=== PATIENT | female | born 1955 | race Caucasian/White ===

== ENCOUNTER → 2018-07-24 | Day surgery (SDC) | payer OTHER ==
[2018-07-23 17:11] LABS: BASOPHILS % 0.6 % (0.0-1.0); EOSINOPHILS # (AUTO) 0.2 (0.0-0.4); HEMATOCRIT 35.3 % (34.2-44.1); LYMPHOCYTES # (AUTO) 1.9 (1.0-3.2); LYMPHOCYTES % 36.2 % (18.0-39.1); MEAN CORPUSCULAR HEMOGLOBIN 28.5 pg (28-32); MEAN CORPUSCULAR HGB CONC 31.2 g/dL (31-35); MEAN CORPUSCULAR VOLUME 91.5 fL (81-99); MONOCYTES # (AUTO) 0.5 (0.2-0.8); MONOCYTES % 9.1 % (4.4-11.3); NEUTROPHILS # (AUTO) 2.7 (2.1-6.9); NEUTROPHILS % 50.7 % (38.7-80.0); PLATELET COUNT 185 x10e3/uL (140-360); RED BLOOD COUNT 3.86 x10e6/uL (3.6-5.1)
[2018-07-23 17:25] LABS: ALANINE AMINOTRANSFERASE 11 IU/L (0-55); ALBUMIN 3.9 g/dL (3.5-5.0); ALBUMIN/GLOBULIN RATIO 1.6 (0.8-2.0); ALKALINE PHOSPHATASE 83 IU/L (40-150); ANION GAP 13.2 mmol/L (8-16); BLOOD UREA NITROGEN 13 mg/dL (7-26); BUN/CREATININE RATIO 16 (6-25); CALCIUM 9.3 mg/dL (8.4-10.2); CARBON DIOXIDE 26 mmol/L (22-29); CHLORIDE 107 mmol/L (98-107); CREATININE, SERUM 0.81 mg/dL (0.57-1.11); EST GLOMERULAR FILTRATION RATE > 60 ML/MIN (60-); GLUCOSE 105 mg/dL (74-118); POTASSIUM 4.2 mmol/L (3.5-5.1); SODIUM 142 mmol/L (136-145)
[~2018-07-24] VITALS: Ht 158.8 cm; Wt 60.8 kg
[~2018-07-24] MED LIST: ALPRAZOLAM 0.5 MG TAB ONE; ATENOLOL50 MG PO; DIPHENHYDRAMINE HCL 25 MG CAP ONE; FENTANYL CITRATE/PF 100MCG/2 ML INJ ONE; HEPARIN SOD (PORCINE) 1000 UNIT/ML 30ML ONE; HEPARIN SOD/SOD CHLORIDE 2,000 ML ONE; IOPAMIDOL 370 MG/ML 200 ML INFUS..BTL INJ ONE; LEFLUNOMIDE20 MG PO; LIDOCAINE HCL 1% LOCAL INJ 20 ML VIAL ONE; LOSARTAN POTASS25 MG PO; MIDAZOLAM HCL 2 MG/2 ML VIAL ONE; NITROGLYCERIN/D5W 200 MCG/ML 250 ML ONE; NORVASC5 MG PO; PLAQUENIL200 MG PO; RESTASIS1 EACH OP; SODIUM CHLORIDE 0.9% 1000ML 1,000 ML ONE; SYNTHROID50 MCG PO; VERAPAMIL HCL 2.5 MG/ML 2 ML VIAL ONE; XANAX0.25 MG PO
--- NOTE | 2018-07-24 12:20 | NUR ---
Patient ambulated to ACU bay 8. Patient awake,alert, and orientedx4. Respirations even and unlabored on room air. Patient's at bedside. Patient does not appear to be in distress at this time. Preparing patient for LHC procedure.
[2018-07-24 12:30] VITALS: BP 164/74
--- NOTE | 2018-07-24 12:50 | NUR ---
Patient prepped and ready in usual fashion for Left heart catheterization procedure.
--- NOTE | 2018-07-24 14:30 | NUR ---
1430 Received handoff from Jose Hooks [facility] diagnostic Dr Bowman No significant findings. Identiferx2 . Rt Trband approach Iv infusing well left ac #20g site w/o s/s infiltration at 100cchr. at bedside explained POC and sign dc papers Aware of importance of followup care. Ordered diet tray. PEERLA able to respond appropriately. Abd soft and non tender denies necessity to defecate or urinate. Bilateral pedal pulses present. TR band titration scheduled in one hour. Denies CP or SOB Shabbir at bedside. . Plan for dc at 1500pm after tr band titration successful per Dr Bowman orders. Inital Tr band titration start at 1500pm(14cc in balloon) 1500pm-2cc site stable, no bleed no hematoma,radial pulse present 1515pm -2cc site stable, no bleeding no hematoma radial pulse present 1530pm -3cc site stable, no bleeding no hematoma radial pulse present 1545 tr band completion no bleeding no hematoma radial pulse present 2x2 gauze and coban with tegaderm rt wrist splint applied no complications noted, question and concerns answered copies of POC given to and all understands POC. genet/rn
--- NOTE | 2018-07-24 14:30 | NUR ---
Report provided to Carissa NICHOLSON, review of procedural findings and medications given. Patient drowsy, easily aroused. maintains airway and room air saturations of 96-98%. VS within baseline range. No gross issues of pressure, pain, pallor or dysrhythmia. IV site patent with NS 0.9% at 100ml/hr by dial-flow. patient hemodynamically stable with hemostasis. right radial TR band with 13ml to bladder. CDI w/o s/s of bleeding. patient transferred to [facility] max assist w/o incident. Overall skin integrity remains intact. transported to [facility] 10 - cgf procedure: Diagnostic LHC and coronary angiography Sheath puller: Mo RANDHAWA Medamy Given Intra-Procedure Sedatives Versed - 2 mg Fentanyl - 50 mcg Radial Cocktail Heparin - 3000 Units Verapamil - 2.5mg nitro - 200mcg Fluids Input - 100 ml Output - zero Contrast Isovue 370 - 40ml
[2018-07-24 14:45] VITALS: BP 111/82
[2018-07-24 15:00] VITALS: BP 116/82
[2018-07-24 15:15] VITALS: BP 105/82
[2018-07-24 15:30] VITALS: BP 114/58
[2018-07-24 15:45] VITALS: BP 120/82
--- NOTE | 2018-07-24 15:45 | NUR ---
1545pm TR band titration completed. Denies pain or sob Remove left ac iv site w/o s/s infiltration 2x2 Coban dressing applied. No bleeding or bruises,assisted to car with as tow driver per w/c by RN ,Pt is tolerating po intake and void qs. Family has made re-ck appt Dr Bowman and will f/o as requested understands POC and precautions. genet/kalyani
--- NOTE | 2018-07-25 01:30 | Operative Report ---
DATE OF PROCEDURE: 07/24/2018 SURGEON: Gilberto Bowman MD INDICATION: Coronary artery disease with normal stress test. PROCEDURES PERFORMED: 1. Left heart catheterization, selective coronary angiography, left ventriculography. 2. Deployment of right wrist TR band. COMPLICATIONS: None. BLOOD LOSS: 5 mL. RECOMMENDATIONS: Medical therapy. DESCRIPTION OF PROCEDURE: Access obtained in the right radial artery. A 5-Yoruba sheath was placed. Ultrasound was used for guidance. Coronary angiography demonstrated widely patent coronary arteries, nondominant right coronary artery, no coronary artery disease, no critical stenosis or occlusions noted. LV ejection fraction of 60%, LV end diastolic pressure of 8. No gradient across the aortic valve on pullback. Guide and sheath were removed. TR band applied. The patient discharged home same day. Gilberto Bowman MD KSB/MODL /[id number]
== END | disposition home or self-care (01) ==
LOC: CATH LAB 07-20 14:00
PROVIDERS: ATTEND Internal Medicine Interventional Cardiology
DX: I25.119 Atherosclerotic heart disease of native coronary artery with unspecified angina pectoris (principal); R93.49 Abnormal radiologic findings on diagnostic imaging of other urinary organs; Z01.812 Encounter for preprocedural laboratory examination; R03.0 Elevated blood-pressure reading, without diagnosis of hypertension; K21.9 Gastro-esophageal reflux disease without esophagitis; E07.9 Disorder of thyroid, unspecified; F41.9 Anxiety disorder, unspecified; Z88.1 Allergy status to other antibiotic agents; Z88.8 Allergy status to other drugs, medicaments and biological substances; Z79.02 Long term (current) use of antithrombotics/antiplatelets; Z86.2 Personal history of diseases of the blood and blood-forming organs and certain disorders involving the immune mechanism; Z82.49 Family history of ischemic heart disease and other diseases of the circulatory system
CPT/HCPCS: 36415; 80053; 85025; 93458; C1887; J1644; J2001; J2250; J7030; Q9967; C1769

== ENCOUNTER 2021-08-09 05:34 | Observation (INO) | payer BC, OTHER ==
[2021-08-07 14:03] LABS: BASOPHILS % 0.6 % (0.0-1.0); EOSINOPHILS # (AUTO) 0.1 (0.0-0.4); EOSINOPHILS % 2.9 % (0.0-6.0); HEMATOCRIT 38.6 % (34.2-44.1); HEMOGLOBIN 11.9 g/dL (12.0-16.0); LYMPHOCYTES % 20.5 % (18.0-39.1); MEAN CORPUSCULAR HEMOGLOBIN 30.2 pg (28-32); MEAN CORPUSCULAR HGB CONC 30.8 g/dL (31-35); MONOCYTES # (AUTO) 0.4 (0.2-0.8); MONOCYTES % 7.9 % (4.4-11.3); NEUTROPHILS # (AUTO) 3.3 (2.1-6.9); NEUTROPHILS % 67.9 % (38.7-80.0); PLATELET COUNT 148 x10e3/uL (140-360); RED BLOOD COUNT 3.94 x10e6/uL (3.6-5.1)
[2021-08-07 14:14] LABS: INR 0.96; PARTIAL THROMBOPLASTIN TIME 24.9 seconds (23.8-35.5); PROTHROMBIN TIME 13.7 seconds (11.9-14.5)
[2021-08-07 14:21] LABS: ANION GAP 13.4 mmol/L (8-16); CALCIUM 9.9 mg/dL (8.4-10.2); CREATININE, SERUM 1.03 mg/dL (0.57-1.11); POTASSIUM 4.4 mmol/L (3.5-5.1)
[~2021-08-09] VITALS: Ht 157.5 cm; Wt 58.7 kg
[~2021-08-09 05:34] MED LIST changes: +ALBUTEROL0.63 MG/3 NEB; -ALPRAZOLAM 0.5 MG TAB ONE; +BREO ELLIPTA 21 EACH INH; -DIPHENHYDRAMINE HCL 25 MG CAP ONE; -FENTANYL CITRATE/PF 100MCG/2 ML INJ ONE; -HEPARIN SOD (PORCINE) 1000 UNIT/ML 30ML ONE; -HEPARIN SOD/SOD CHLORIDE 2,000 ML ONE; -IOPAMIDOL 370 MG/ML 200 ML INFUS..BTL INJ ONE; -LIDOCAINE HCL 1% LOCAL INJ 20 ML VIAL ONE; -MIDAZOLAM HCL 2 MG/2 ML VIAL ONE; -NITROGLYCERIN/D5W 200 MCG/ML 250 ML ONE; +PANTOPRAZOLE SO40 MG PO; +SINGULAIR10 MG PO; -SODIUM CHLORIDE 0.9% 1000ML 1,000 ML ONE; +VALIUM5 MG PO; -VERAPAMIL HCL 2.5 MG/ML 2 ML VIAL ONE; +XARELTO20 MG PO
[2021-08-09] MEDS ORDERED: LIDOCAINE 1% W/EPINEPHRINE 20 ML VIAL ONE (06:56)
[2021-08-09] MEDS ORDERED: Vancomycin IV 1 GM VIAL ONE (06:56)
[2021-08-09] MEDS ORDERED: THROMBIN FOR SOLN 5,000 UNIT VIAL ONE (06:56)
[2021-08-09] MEDS ORDERED: ACETAMINOPHEN 325 MG TAB PO PRN (09:15)
[2021-08-09] MEDS ORDERED: ZOLPIDEM TARTRATE 5 MG TAB PO PRN (09:15)
[2021-08-09] MEDS ORDERED: Morphine 4mg Syringe 4 MG/ML INJ IM PRN (09:15)
[2021-08-09] MEDS ORDERED: PROMETHAZINE HCL (IM) 25 MG/ML VIAL IM PRN (09:15)
[2021-08-09] MEDS ORDERED: DIAZEPAM 5 MG TAB PO SCH (09:15)
[2021-08-09] MEDS ORDERED: MAGNESIUM/ALUMINUM/SIMETHICONE 30 ML UDC PO PRN (09:15)
[2021-08-09] MEDS ORDERED: HYDROMORPHONE 2MG/ML 2 MG/ML ML IV PRN (09:15)
[2021-08-09] MEDS ORDERED: ONDANSETRON HCL INJ 2MG/ML 2ML 2 MG/ML VIAL IV PRN (09:15)
[2021-08-09] MEDS ORDERED: ALBUTEROL SULF 0.083% NEB SOLN 3 ML NEB NEB PRN (09:15)
[2021-08-09] MEDS ORDERED: CARISOPRODOL 350 MG TAB PO PRN (09:15)
[2021-08-09] MEDS ORDERED: HYDROCODON-ACE1 EA12 PO (09:18)
[2021-08-09 10:27] VITALS: BP 134/57
[2021-08-09] MEDS: LACTATED RINGER'S 1,000 ML IV SCH ×3 (11:00→23:45)
[2021-08-09 11:56] VITALS: BP 121/56
[2021-08-09] MEDS ORDERED: LIDOCAINE HCL 2% LOCAL INJ 5 ML SDV VIAL INJ ONE (12:02)
[2021-08-09] MEDS ORDERED: POVIDONE IODINE 0.05% 0.05 % ML PO ONE (12:02)
[2021-08-09] MEDS ORDERED: PROPOFOL IV EMULSION 10 MG/ML 20 ML VIAL ONE (12:02)
[2021-08-09] MEDS ORDERED: EPHEDRINE SULFATE INJ 50 MG/ML VIAL ONE (12:02)
[2021-08-09] MEDS ORDERED: ROCURONIUM BROMIDE 10 MG/ML 5ML VIAL IV ONE (12:02)
[2021-08-09] MEDS ORDERED: DEXAMETHASONE SOD PHOS INJ 4 MG/ML SDV ONE (12:02)
[2021-08-09] MEDS ORDERED: ONDANSETRON HCL INJ 2MG/ML 2ML 2 MG/ML VIAL ONE (12:02)
[2021-08-09] MEDS ORDERED: ACETAMINOPHEN 1000 MG/100 ML IV ONE (12:02)
[2021-08-09] MEDS ORDERED: SEVOFLURANE INHAL SOLN 250 ML PEN BTL ONE (12:02)
[2021-08-09] MEDS ORDERED: MIDAZOLAM HCL 2 MG/2 ML VIAL ONE (12:22)
[2021-08-09] MEDS ORDERED: FENTANYL CITRATE/PF 100MCG/2 ML INJ ONE (12:22)
[2021-08-09 13:47] VITALS: BP 134/57
[2021-08-09] MEDS ORDERED: AMLODIPINE BESYLATE 5 MG TAB PO SCH (14:00)
[2021-08-09 16:22] VITALS: BP 114/55
[2021-08-09] MEDS ORDERED: SODIUM CHLORIDE 0.9% 50ML 50 ML ONE (16:33)
[2021-08-09] MEDS: NON-FORMULARY MEDICATION (Cyclosporine (Restasis) 1 DROP) OP SCH (17:00)
[2021-08-09] MEDS: LOSARTAN POTASSIUM 25 MG TAB PO SCH (17:00)
[2021-08-09] MEDS: Cefazolin 1 GM in SODIUM CHLORIDE 0.9% 50ML 50 ML IV SCH ×2 (17:40→23:45)
[2021-08-09] MEDS: ATENOLOL 50 MG TAB PO SCH (17:41)
[2021-08-09] MEDS: OXYCODONE/ACETAMINOPHEN 5-325 1 EACH TABLET PO PRN (19:54)
[2021-08-09 20:09] VITALS: BP 131/62
[2021-08-09 20:20] VITALS: BP 131/62
[2021-08-09] MEDS ORDERED: MONTELUKAST SODIUM 10 MG TAB PO SCH (21:00)
[2021-08-10] MEDS: OXYCODONE/ACETAMINOPHEN 5-325 1 EACH TABLET PO PRN (00:10)
[2021-08-10 00:16] VITALS: BP 132/69
[2021-08-10 03:58] VITALS: BP 123/60
[2021-08-10] MEDS ORDERED: LEVOTHYROXINE SODIUM 50 MCG TAB PO SCH (06:00)
[2021-08-10] MEDS ORDERED: ONDANSETRON HCL 4 MG ORAL DISINTEGRATING TAB PO PRN (06:45)
[2021-08-10] MEDS ORDERED: PANTOPRAZOLE SOD 40 MG TABEC PO SCH (07:30)
[2021-08-10 08:34] VITALS: BP 130/56
[2021-08-10] MEDS: Cefazolin 1 GM in SODIUM CHLORIDE 0.9% 50ML 50 ML IV SCH (08:35)
[2021-08-10] MEDS: NON-FORMULARY MEDICATION (Cyclosporine (Restasis) 1 DROP) OP SCH (08:35)
[2021-08-10] MEDS: LOSARTAN POTASSIUM 25 MG TAB PO SCH (08:36)
[2021-08-10] MEDS: ATENOLOL 50 MG TAB PO SCH (08:37)
[2021-08-10 08:52] VITALS: BP 130/56
[2021-08-10] MEDS ORDERED: HYDROXYCHLOROQUINE SULFATE 200 MG TAB PO SCH (09:00)
[2021-08-10] MEDS ORDERED: NON-FORMULARY MEDICATION (Fluticasone/Vilanterol (Breo Ellipta 200-25 Mcg INH) 1 INH) INH SCH (09:00)
[2021-08-10] MEDS ORDERED: NON-FORMULARY MEDICATION (Leflunomide 20 MG) PO SCH (09:00)
== END 2021-08-10 10:30 | disposition home or self-care (01) ==
LOC: OR 05:34 → PACU V 09:43 → MED/SURG 10:08
PROVIDERS: ADMIT Neurological Surgery; ATTEND Neurological Surgery
DX: M48.062 Spinal stenosis, lumbar region with neurogenic claudication (principal); J45.909 Unspecified asthma, uncomplicated; I10 Essential (primary) hypertension; E03.9 Hypothyroidism, unspecified; M06.9 Rheumatoid arthritis, unspecified; I48.91 Unspecified atrial fibrillation; K58.9 Irritable bowel syndrome, unspecified; M81.0 Age-related osteoporosis without current pathological fracture; Z01.810 Encounter for preprocedural cardiovascular examination; Z01.812 Encounter for preprocedural laboratory examination; Z01.818 Encounter for other preprocedural examination; Z20.822 Contact with and (suspected) exposure to COVID-19
CPT/HCPCS: 36415; 63047; 63048; 71046; 72020; 80048; 85025; 85610; 85730; 86850 ×2; 86900 ×2; 88304; 88311; 93005; G0378 ×2; J0131; J0690 ×2; J1100; J2001; J2250; J2405; J2704; J3010; J3370; S0164; U0002